=== PATIENT | female | born 1965 | race Caucasian/White ===

== ENCOUNTER 2017-10-10 22:22 | Emergency (ER) | payer MEDICAID, OTHER ==
[~2017-10-10] VITALS: Ht 172.7 cm; Wt 136.3 kg
[~2017-10-10 22:22] MED LIST: LEVO125T69 PO
[2017-10-11] MEDS ORDERED: IBUP-1986 PO (01:09)
[2017-10-11 01:39] VITALS: BP 157/76
== END 2017-10-11 01:41 | disposition home or self-care (01) ==
LOC: ER 22:23
DX: S93.401A Sprain of unspecified ligament of right ankle, initial encounter (principal); Z88.5 Allergy status to narcotic agent; Z88.0 Allergy status to penicillin; Z88.2 Allergy status to sulfonamides; Z88.1 Allergy status to other antibiotic agents; X58.XXXA Exposure to other specified factors, initial encounter; Y93.89 Activity, other specified; Y92.89 Other specified places as the place of occurrence of the external cause; Y99.8 Other external cause status
CPT/HCPCS: 29515; 73610; 99284

== ENCOUNTER 2018-04-06 14:58 | Emergency (ER) | payer OTHER ==
[~2018-04-06] VITALS: Ht 591.1 cm; Wt 140.9 kg
[~2018-04-06 14:58] MED LIST changes: +IBUP-1986 PO
[2018-04-06] MEDS ORDERED: ondansetron/PF 4mg/2ml inj IV ONE (15:10)
[2018-04-06] MEDS ORDERED: morphine 4 MG/ML inj SYRINge IV ONE (15:10)
[2018-04-06] MEDS ORDERED: normal saline 1000ML IV soln IVB ONE (15:10)
[2018-04-06 15:27] LABS: BASOPHILS % (AUTO) 0.5 % (0-1); EOSINOPHILS # (AUTO) 0.3 X10'3 (0-0.9); EOSINOPHILS % (AUTO) 4.7 % (0-6); HEMATOCRIT 37.7 % (35.0-45.0); HEMOGLOBIN 12.7 g/dl (12.0-16.0); LYMPHOCYTES # (AUTO) 1.7 X10'3 (1.1-4.8); LYMPHOCYTES % (AUTO) 22.6 % (21-51); MEAN CORPUSCULAR HEMOGLOBIN 30.6 PG (27.0-31.0); MEAN CORPUSCULAR HGB CONC 33.7 % (33.0-36.5); MEAN CORPUSCULAR VOLUME 90.7 FL (78-98); MEAN PLATELET VOLUME 7.9 FL (7.4-10.4); MONOCYTES # (AUTO) 0.4 X10'3 (0-0.9); MONOCYTES % (AUTO) 4.9 % (2-12); NEUTROPHILS % (AUTO) 67.3 % (42-75); PLATELET COUNT 280 X10'3 (140-440); RED BLOOD COUNT 4.16 X10'6 (4.20-5.60); RED CELL DISTRIBUTION WIDTH 13.2 % (11.5-14.5); WHITE BLOOD COUNT 7.4 X10'3 (4.5-11.0)
[2018-04-06 15:43] LABS: ALANINE AMINOTRANSFERASE 67 U/L (12-78); ALBUMIN 3.2 G/DL (3.4-5.0); ALKALINE PHOSPHATASE 130 IU/L (46-116); ANION GAP 7 (8-16); ASPARTATE AMINO TRANSFERASE 34 U/L (10-37); BILIRUBIN,TOTAL 0.3 MG/DL (0.1-1.0); BLOOD UREA NITROGEN 12 MG/DL (7-18); BUN/CREATININE RATIO 12.1 (6.6-38.0); CALCIUM 8.3 MG/DL (8.5-10.1); CHLORIDE 103 MMOL/L (99-107); CREATININE 0.99 MG/DL (0.40-0.90); GLUCOSE 97 MG/DL (70-104); POTASSIUM 3.4 MMOL/L (3.5-5.1); SODIUM 140 MMOL/L (135-145); TOTAL CARBON DIOXIDE 29.9 MMOL/L (24-32); TOTAL PROTEIN 6.4 G/DL (6.4-8.2); eGFR 59 ML/MIN
[2018-04-06 15:56] LABS: D-DIMER 0.21 MG/L FEU (0-0.50)
[2018-04-06] MEDS ORDERED: metoprolol succinate 25mg (24-HOUR) SR. Tablet PO STA (16:02)
[2018-04-06 17:51] VITALS: BP 117/60
[2018-04-06] MEDS ORDERED: NITR0.4T51 SL (17:51)
[2018-04-06] MEDS ORDERED: famotidine 20mg tablet PO ONE (18:00)
[2018-04-06] MEDS ORDERED: LIDOcaine Viscous 15ml cup PO ONE (18:00)
[2018-04-06] MEDS ORDERED: mag hydrox/Alum hydrox/simeth 30ml oral suspension PO ONE (18:00)
[2018-04-06] MEDS ORDERED: sucralfate 1 gm tablet PO ONE (18:00)
== END 2018-04-06 18:17 | disposition home or self-care (01) ==
LOC: ER 14:59
DX: I20.8 Other forms of angina pectoris (principal); M79.89 Other specified soft tissue disorders; I10 Essential (primary) hypertension; Z90.49 Acquired absence of other specified parts of digestive tract; Z88.1 Allergy status to other antibiotic agents; Z88.0 Allergy status to penicillin; Z88.2 Allergy status to sulfonamides; Z88.5 Allergy status to narcotic agent; Z79.899 Other long term (current) drug therapy
CPT/HCPCS: 36415; 71045; 80053; 83880; 84484; 85025; 85379; 93005; 93971; 96374; 96375; 99285; J2270; J2405; J7030

== ENCOUNTER 2018-11-15 14:07 | Observation (INO) | payer OTHER ==
[~2018-11-15] VITALS: Ht 172.7 cm; Wt 140.9 kg
[2018-11-15 14:45] LABS: BASOPHILS % (AUTO) 0.5 % (0-1); EOSINOPHILS % (AUTO) 0.5 % (0-6); HEMATOCRIT 42.7 % (35.0-45.0); LYMPHOCYTES # (AUTO) 1.5 X10'3 (1.1-4.8); LYMPHOCYTES % (AUTO) 19.4 % (21-51); MEAN CORPUSCULAR HEMOGLOBIN 29.9 PG (27.0-31.0); MEAN CORPUSCULAR HGB CONC 32.7 g/dL (33.0-36.5); MEAN CORPUSCULAR VOLUME 91.2 FL (78-98); MONOCYTES # (AUTO) 0.4 X10'3 (0-0.9); NEUTROPHILS # (AUTO) 5.8 X10'3 (1.8-7.7); NEUTROPHILS % (AUTO) 74.6 % (42-75); PLATELET COUNT 306 X10'3 (140-440); RED BLOOD COUNT 4.68 X10'6 (4.20-5.60); RED CELL DISTRIBUTION WIDTH 13.3 % (11.5-14.5); WHITE BLOOD COUNT 7.8 X10'3 (4.5-11.0)
[2018-11-15 14:56] LABS: ALANINE AMINOTRANSFERASE 74 U/L (12-78); ALBUMIN 3.8 G/DL (3.4-5.0); ALBUMIN/GLOBULIN RATIO 1.1 (1.1-1.5); ALKALINE PHOSPHATASE 142 IU/L (46-116); ANION GAP 9 (8-16); ASPARTATE AMINO TRANSFERASE 43 U/L (10-37); BILIRUBIN,TOTAL 0.4 MG/DL (0.1-1.0); BLOOD UREA NITROGEN 14 MG/DL (7-18); BUN/CREATININE RATIO 14.1 (6.6-38.0); CALCIUM 9.2 MG/DL (8.5-10.1); CHLORIDE 104 MMOL/L (99-107); CREATININE 0.99 MG/DL (0.40-0.90); GLUCOSE 102 MG/DL (70-104); POTASSIUM 3.4 MMOL/L (3.5-5.1); SODIUM 141 MMOL/L (135-145); TOTAL CARBON DIOXIDE 28.2 MMOL/L (24-32); TOTAL PROTEIN 7.4 G/DL (6.4-8.2); eGFR 58 ML/MIN
[2018-11-15 14:58] LABS: PARTIAL THROMBOPLASTIN TIME 26 SECONDS (22-32); PROTHROMBIN TIME 10.6 SECONDS (9.0-12.0)
[2018-11-15] MEDS ORDERED: aspirin 81mg tab.chew PO ONE (15:00)
[2018-11-15] MEDS ORDERED: nitroGLYCERIN 0.4mg SUBLingual tab SL PRN (15:00)
[2018-11-15] MEDS ORDERED: TRAZ-218 PO (15:17)
[2018-11-15] MEDS ORDERED: LOSA100T57 PO (15:17)
[2018-11-15] MEDS ORDERED: HYDR25TA4 PO (15:17)
[2018-11-15] MEDS ORDERED: LEVO125T8 PO (15:17)
[2018-11-15] MEDS ORDERED: mag hydrox/Alum hydrox/simeth 30ml oral suspension PO PRN (16:25)
[2018-11-15] MEDS ORDERED: magnesium hydroxide 30ml (MOM) UD suspension PO PRN (16:25)
[2018-11-15] MEDS ORDERED: ondansetron/PF 4mg/2ml inj IV PRN (16:25)
[2018-11-15] MEDS ORDERED: potassium Cl 40MEQ/NS 500ml 500 ML IV PRN ×2 (16:25)
[2018-11-15] MEDS ORDERED: potassium Cl 20 mEq SR tablet PO PRN ×2 (16:25)
[2018-11-15] MEDS ORDERED: traZODone 50mg tablet PO PRN (16:30)
--- NOTE | 2018-11-15 23:16 | NUR ---
Received pt report from Tomy in ED. Pt arrived on the unit at 2300 with VSS, on R/A, no signs of distress. changed into hospital socks, belongings placed in bedside drawers. Tele #10 placed on pt. Pt states that she currently is asymptomatic. Will continue to monitor.
[2018-11-16] VITALS (11 sets, daily range): BP systolic 108–147; BP diastolic 59–77
[2018-11-16 02:46] LABS: BASOPHILS % (AUTO) 0.1 % (0-1); EOSINOPHILS # (AUTO) 0.1 X10'3 (0-0.9); HEMATOCRIT 41.6 % (35.0-45.0); HEMOGLOBIN 13.8 g/dl (12.0-16.0); LYMPHOCYTES # (AUTO) 1.6 X10'3 (1.1-4.8); LYMPHOCYTES % (AUTO) 23.6 % (21-51); MEAN CORPUSCULAR HGB CONC 33.2 g/dL (33.0-36.5); MEAN CORPUSCULAR VOLUME 90.6 FL (78-98); MEAN PLATELET VOLUME 8.1 FL (7.4-10.4); MONOCYTES # (AUTO) 0.4 X10'3 (0-0.9); NEUTROPHILS # (AUTO) 4.7 X10'3 (1.8-7.7); NEUTROPHILS % (AUTO) 69.3 % (42-75); PLATELET COUNT 288 X10'3 (140-440); RED BLOOD COUNT 4.59 X10'6 (4.20-5.60); RED CELL DISTRIBUTION WIDTH 13.1 % (11.5-14.5); WHITE BLOOD COUNT 6.8 X10'3 (4.5-11.0)
[2018-11-16 02:56] LABS: ALBUMIN 3.6 G/DL (3.4-5.0); ANION GAP 7 (8-16); BLOOD UREA NITROGEN 13 MG/DL (7-18); BUN/CREATININE RATIO 12.9 (6.6-38.0); CALCIUM 9.4 MG/DL (8.5-10.1); CHLORIDE 104 MMOL/L (99-107); CREATININE 1.01 MG/DL (0.40-0.90); GLUCOSE 102 MG/DL (70-104); POTASSIUM 3.7 MMOL/L (3.5-5.1); SODIUM 141 MMOL/L (135-145); TOTAL CARBON DIOXIDE 30.1 MMOL/L (24-32); eGFR 57 ML/MIN
--- NOTE | 2018-11-16 06:37 | NUR ---
Problems reprioritized. Patient report given, questions answered & plan of care reviewed with Tashia PADILLA.
[2018-11-16] MEDS: K and/or MAG REPLACEMENT MC SCH (08:00)
[2018-11-16] MEDS: levoTHYROXINE 125mcg tablet PO SCH (09:23)
[2018-11-16] MEDS: losartan 50mg tablet PO SCH (09:24)
[2018-11-16] MEDS: HYDROchlorothiazide 25mg tablet PO SCH (09:25)
[2018-11-16] MEDS ORDERED: midazolam 2 mg/2 ml injection ONE (12:02)
[2018-11-16] MEDS ORDERED: iohexol 350 MG/ML 50ML vial IV ONE ×2 (12:03→13:38)
[2018-11-16] MEDS ORDERED: nitroGLYCERIN-Tridil 50MG/D5W 250 ML IV ONE (12:03)
[2018-11-16] MEDS ORDERED: heparin 1,000unit/ml 10ml vial 10 ML ONE (12:03)
[2018-11-16] MEDS ORDERED: LIDOcaine 1% (10mg/ml)w/preservative injection 20ml MDV ONE (12:03)
[2018-11-16] MEDS ORDERED: iohexol 350MG/ML 100ml bottle IV ONE (12:03)
[2018-11-16] MEDS ORDERED: fentaNYL/PF 50MCG/1 ML 2ML syringe ONE (12:03)
[2018-11-16] MEDS ORDERED: verapamil 2.5 mg/ml inj IV ONE (12:12)
[2018-11-16 14:36] LABS: ISTAT HGB ART 13.6 g/dl (12.0-16.0); ISTAT Hct ART 40 %PCV (35-48); ISTAT O2 SATURATION ARTERIAL 89 % (95-98); ISTAT SOURCE ART
[2018-11-16 14:36] LABS: ISTAT Hct MIX 39 %PCV (35-48); ISTAT O2 SATURATION MIX VENOUS 66 % (60-80); ISTAT SOURCE MIX
--- NOTE | 2018-11-16 18:14 | NUR ---
Pt. resting in bed comfortably with rise and fall of chest noted. Gave report to Erlinda PADILLA.
--- NOTE | 2018-11-16 18:53 | NUR ---
Patient in room [facility]. I have received report from Tashia PADILLA and had the opportunity to ask questions and assume patient care.
[2018-11-16] MEDS: acetaminophen 325mg tablet PO PRN (19:27)
[2018-11-17] VITALS: BP 124/64
[2018-11-17] MEDS: acetaminophen 325mg tablet PO PRN (00:41)
[2018-11-17 04:42] LABS: BASOPHILS % (AUTO) 0.2 % (0-1); EOSINOPHILS % (AUTO) 0.7 % (0-6); HEMATOCRIT 38.4 % (35.0-45.0); HEMOGLOBIN 12.5 g/dl (12.0-16.0); LYMPHOCYTES % (AUTO) 14.5 % (21-51); MEAN CORPUSCULAR HEMOGLOBIN 29.9 PG (27.0-31.0); MEAN CORPUSCULAR HGB CONC 32.6 g/dL (33.0-36.5); MEAN CORPUSCULAR VOLUME 91.6 FL (78-98); MONOCYTES # (AUTO) 0.4 X10'3 (0-0.9); MONOCYTES % (AUTO) 6.2 % (2-12); NEUTROPHILS # (AUTO) 5.6 X10'3 (1.8-7.7); NEUTROPHILS % (AUTO) 78.4 % (42-75); PLATELET COUNT 250 X10'3 (140-440); RED CELL DISTRIBUTION WIDTH 13.1 % (11.5-14.5); WHITE BLOOD COUNT 7.1 X10'3 (4.5-11.0)
[2018-11-17 04:45] LABS: ALBUMIN 3.3 G/DL (3.4-5.0); ANION GAP 6 (8-16); BLOOD UREA NITROGEN 13 MG/DL (7-18); BUN/CREATININE RATIO 14.6 (6.6-38.0); CALCIUM 8.8 MG/DL (8.5-10.1); CHLORIDE 104 MMOL/L (99-107); CREATININE 0.89 MG/DL (0.40-0.90); GLUCOSE 108 MG/DL (70-104); POTASSIUM 3.4 MMOL/L (3.5-5.1); SODIUM 139 MMOL/L (135-145); TOTAL CARBON DIOXIDE 28.9 MMOL/L (24-32); eGFR 66 ML/MIN
--- NOTE | 2018-11-17 06:28 | NUR ---
Problems reprioritized. Patient report given, questions answered & plan of care reviewed with Tashia PADILLA. Pt asleep on her left side with no signs of distress.
[2018-11-17] MEDS: losartan 50mg tablet PO SCH (07:24)
[2018-11-17] MEDS: levoTHYROXINE 125mcg tablet PO SCH (07:24)
[2018-11-17] MEDS: HYDROchlorothiazide 25mg tablet PO SCH (07:24)
[2018-11-17] MEDS: K and/or MAG REPLACEMENT MC SCH (07:28)
[2018-11-17 07:34] VITALS: BP 108/68
[2018-11-17] MEDS ORDERED: PANT-47 PO (11:12)
--- NOTE | 2018-11-17 14:56 | NUR ---
Barry MONROY for RUE sling size large. Pt. son here. States pt. is receiving care in downstairs ortho clinic, MD Low, for RU shoulder fx. Pt. should not walk with FWW at this time or put weight on that extremity. PT notified. Addendum: 11/17/18 at 1540 by Tashia Power RN iGNORE THIS NOTE. wRONG PT.
--- NOTE | 2018-11-17 15:40 | NUR ---
345a JENNIFER DARNELL PT DOES NOT WANT TO DISCHARGE. UNAWARE OF CHRONIC RAYMUNDO SEPULVEDA DISCUSSED IN DISCHARGE PAPERWORK REVIEW. MAY YOU SPEAK WITH THE PT PLEASE? ARTEM PADILLA [phone]
--- NOTE | 2018-11-17 15:52 | NUR ---
RETURNED PAGE. 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 ARTEM PADILLA [phone]
--- NOTE | 2018-11-17 18:10 | NUR ---
Pt. discharged today in a stable condition. Wanted to go down and visit her daughter who is a patient in the ER. Tel, DC'd cleaned and returned. IV DC'd, pressure bandage applied, no s/sx bleeding noted. Reviewed follow up care concerning radial heart cath sites. Pt has doctor's note to take off work r/t 10 pound weight lift limit for 5 days. She is aware. Extra bandages given to the pt. and s/sx bleeding reviewed w/pt. Pt. will make a follow noah. w/ MD Alvarez in one week. Discussed the rest of her discharge paperwork, and pt. knows to return if any s/sx occur again. Belongings taken with pt. downstairs, accompanied by hospital staff member to first floor.
== END 2018-11-17 16:40 | disposition home or self-care (01) ==
LOC: ER 14:08 → ED HOLD 16:22 → EDBEDREQ 22:34 → SUR 3N 23:32 → CMPBEDREQ 23:32
PROVIDERS: ADMIT Hospitalist; ATTEND Hospitalist
DX: R55 Syncope and collapse (principal); R07.89 Other chest pain; I10 Essential (primary) hypertension; E66.01 Morbid (severe) obesity due to excess calories; E87.6 Hypokalemia; R00.2 Palpitations; E03.9 Hypothyroidism, unspecified; Z87.19 Personal history of other diseases of the digestive system; Z90.49 Acquired absence of other specified parts of digestive tract; Z88.1 Allergy status to other antibiotic agents
CPT/HCPCS: 36415; 71045; 80048; 80053; 82803; 84484; 85014; 85025; 85610; 85730; 87070; 93005; 93460; 99284; A6257; A6449; G0378; J1644; J2001; J2250; J3010; Q9967; 99152; 99153; A4620; C1769; J3490

== ENCOUNTER 2018-12-12 10:37 | Emergency (ER) | payer OTHER ==
[~2018-12-12] VITALS: Ht 172.7 cm; Wt 139.1 kg
[~2018-12-12 10:37] MED LIST changes: +HYDR25TA4 PO; -IBUP-1986 PO; -LEVO125T69 PO; +LEVO125T8 PO; +LOSA100T57 PO; +PANT-47 PO; +TRAZ-218 PO
[2018-12-12 10:54] VITALS: BP 141/91
[2018-12-12] MEDS ORDERED: METH4TAB3 PO (11:21)
[2018-12-12] MEDS ORDERED: AMLO2.5T2 PO (11:21)
== END 2018-12-12 11:31 | disposition home or self-care (01) ==
LOC: ER 10:37
DX: R21 Rash and other nonspecific skin eruption (principal); L53.8 Other specified erythematous conditions; I10 Essential (primary) hypertension; Z90.49 Acquired absence of other specified parts of digestive tract; Z88.0 Allergy status to penicillin; Z88.2 Allergy status to sulfonamides; Z88.5 Allergy status to narcotic agent; Z79.899 Other long term (current) drug therapy
CPT/HCPCS: 99283

== ENCOUNTER 2019-03-18 23:01 | Emergency (ER) | payer OTHER ==
[~2019-03-18] VITALS: Ht 172.7 cm; Wt 140.0 kg
[~2019-03-18 23:01] MED LIST changes: +METH4TAB3 PO; -TRAZ-218 PO; +TRAZ-251 PO
[2019-03-18 23:03] VITALS: BP 145/78
[2019-03-18] MEDS ORDERED: CLIN150C8 PO (23:23)
[2019-03-18] MEDS ORDERED: clindamycin 150mg capsule PO ONE (23:25)
== END 2019-03-18 23:38 | disposition home or self-care (01) ==
LOC: ER 23:02
DX: L03.116 Cellulitis of left lower limb (principal); I10 Essential (primary) hypertension; Z90.49 Acquired absence of other specified parts of digestive tract; Z56.0 Unemployment, unspecified; Z79.2 Long term (current) use of antibiotics; Z88.2 Allergy status to sulfonamides; Z88.6 Allergy status to analgesic agent; Z79.899 Other long term (current) drug therapy
CPT/HCPCS: 99283

== ENCOUNTER 2019-03-20 21:12 | Emergency (ER) | payer OTHER ==
[~2019-03-20] VITALS: Ht 172.7 cm; Wt 140.4 kg
[~2019-03-20 21:12] MED LIST changes: +CLIN150C8 PO
[2019-03-20] MEDS ORDERED: DOXY100C43 PO (21:44)
[2019-03-20 22:02] VITALS: BP 133/82
== END 2019-03-20 22:03 | disposition home or self-care (01) ==
LOC: ER 21:13
DX: L03.116 Cellulitis of left lower limb (principal); I10 Essential (primary) hypertension; Z90.49 Acquired absence of other specified parts of digestive tract; Z56.0 Unemployment, unspecified; Z88.0 Allergy status to penicillin; Z88.2 Allergy status to sulfonamides; Z88.5 Allergy status to narcotic agent; Z88.8 Allergy status to other drugs, medicaments and biological substances; Z79.2 Long term (current) use of antibiotics; Z79.899 Other long term (current) drug therapy
CPT/HCPCS: 99283

== ENCOUNTER 2019-07-15 13:53 | Emergency (ER) | payer OTHER ==
[~2019-07-15] VITALS: Ht 172.7 cm; Wt 140.9 kg
[2019-07-15 14:14] VITALS: BP 178/92
== END 2019-07-15 16:05 | disposition home or self-care (01) ==
LOC: ER 13:54
DX: S09.90XA Unspecified injury of head, initial encounter (principal); I10 Essential (primary) hypertension; Z90.49 Acquired absence of other specified parts of digestive tract; Z56.0 Unemployment, unspecified; Z88.1 Allergy status to other antibiotic agents; Z88.2 Allergy status to sulfonamides; Z88.0 Allergy status to penicillin; Z88.6 Allergy status to analgesic agent; Z88.8 Allergy status to other drugs, medicaments and biological substances; Z79.2 Long term (current) use of antibiotics; Z79.899 Other long term (current) drug therapy; W22.8XXA Striking against or struck by other objects, initial encounter; Y93.89 Activity, other specified; Y92.89 Other specified places as the place of occurrence of the external cause; Y99.8 Other external cause status
CPT/HCPCS: 70450; 72125; 99284

== ENCOUNTER 2019-07-18 18:41 | Emergency (ER) | payer OTHER ==
[~2019-07-18] VITALS: Ht 172.7 cm; Wt 140.9 kg
[2019-07-18 18:48] VITALS: BP 154/87
== END 2019-07-18 20:40 | disposition home or self-care (01) ==
LOC: ER 18:42
DX: M25.562 Pain in left knee (principal); I10 Essential (primary) hypertension; Z88.8 Allergy status to other drugs, medicaments and biological substances; Z88.0 Allergy status to penicillin; Z88.6 Allergy status to analgesic agent; Z79.2 Long term (current) use of antibiotics; Z79.899 Other long term (current) drug therapy; Z88.2 Allergy status to sulfonamides; Z90.49 Acquired absence of other specified parts of digestive tract; Z56.0 Unemployment, unspecified; X58.XXXA Exposure to other specified factors, initial encounter; Y93.01 Activity, walking, marching and hiking; Y92.89 Other specified places as the place of occurrence of the external cause; Y99.8 Other external cause status
CPT/HCPCS: 29505; 73564; 99283

== ENCOUNTER 2019-07-28 09:40 | Outpatient (CLI) | payer OTHER | END 2019-07-28 09:49 | disposition home or self-care (01) | LOC: ORTHO 09:40 | PROVIDERS: ATTEND Nurse Practitioner | DX: S86.812A Strain of other muscle(s) and tendon(s) at lower leg level, left leg, initial encounter (principal); E66.9 Obesity, unspecified; I10 Essential (primary) hypertension; Z88.8 Allergy status to other drugs, medicaments and biological substances; Z88.0 Allergy status to penicillin; Z88.6 Allergy status to analgesic agent; Z79.2 Long term (current) use of antibiotics; Z79.899 Other long term (current) drug therapy; X58.XXXD Exposure to other specified factors, subsequent encounter | CPT/HCPCS: G0463 ==

== ENCOUNTER 2023-09-28 17:13 | Emergency (ER) | payer OTHER ==
[~2023-09-28] VITALS: Ht 172.7 cm; Wt 97.7 kg
[~2023-09-28 17:13] MED LIST changes: +CLIN-214 PO; -CLIN150C8 PO; -LOSA100T57 PO; +LOSA100T58 PO
[2023-09-28 17:16] VITALS: BP 189/70; PULSE 69; RESP 18; TEMP 97.1; O2SAT 98
[2023-09-28] MEDS: predniSONE 20 mg tablet PO ONE (19:00)
[2023-09-28] MEDS: LORazepam 2 mg/ml vial IM ONE (19:00)
[2023-09-28] MEDS ORDERED: CYCL-1 PO (20:00)
[2023-09-28] MEDS ORDERED: PRED20TA PO (20:00)
== END 2023-09-28 20:26 | disposition home or self-care (01) ==
LOC: ER 17:13
DX: S39.012A Strain of muscle, fascia and tendon of lower back, initial encounter (principal); I10 Essential (primary) hypertension; E11.9 Type 2 diabetes mellitus without complications; Z88.8 Allergy status to other drugs, medicaments and biological substances; Z88.1 Allergy status to other antibiotic agents; Z88.6 Allergy status to analgesic agent; Z88.0 Allergy status to penicillin; Z88.2 Allergy status to sulfonamides; Z79.2 Long term (current) use of antibiotics; Z79.899 Other long term (current) drug therapy; Z90.49 Acquired absence of other specified parts of digestive tract; X58.XXXA Exposure to other specified factors, initial encounter; Y93.89 Activity, other specified; Y92.89 Other specified places as the place of occurrence of the external cause; Y99.8 Other external cause status
CPT/HCPCS: 72131; 96372; 99285; J2060; J7512

== ENCOUNTER 2025-03-30 15:31 | Emergency (ER) | payer OTHER ==
[~2025-03-30] VITALS: Ht 172.7 cm; Wt 120.4 kg
[~2025-03-30 15:31] MED LIST changes: +CYCL-1 PO
[2025-03-30 15:33] VITALS: BP 140/87; PULSE 74; RESP 18; TEMP 96.9; O2SAT 97
--- NOTE | 2025-03-30 15:46 | Physician Documentation ---
History of Present Illness ~ Chief Complaint: Bite-animal Stated Complaint: FACIAL PAIN Time Seen by MD: 15:39 Primary Medical Doctor: dr. curtis HPI He will female presents to the ED with a complaint of a cat bite on her right brow. Yesterday and she has developed increased pain and swelling denies any fevers or nausea vomit. Denies any history of diabetes Day of Onset: Mar 30, 2025 Medication Reconciliation Allergies: Coded Allergies: hydrochlorothiazide (Verified Allergy, Severe, FACIAL SWELLING, 03/30/25) losartan (Verified Allergy, Severe, FACIAL SWELLING, 03/30/25) Cephalexin Monohydrate (Unverified Allergy, Unknown, hives, 03/30/25) NSAIDS (Non-Steroidal Anti-Inflamma (Verified Allergy, Unknown, aspirin ok, 03/30/25) Penicillins (Unverified Allergy, Unknown, 03/30/25) Sulfa (Sulfonamide Antibiotics) (Unverified Allergy, Unknown, 03/30/25) hydromorphone (Verified Allergy, Unknown, 03/30/25) Scheduled Clindamycin HCl (Clindamycin HCl CAPSULE), 1 CAP PO QID Cyclobenzaprine* (Cyclobenzaprine*), 1 TAB PO Q8H Doxycycline Monohydrate (Doxycycline Monohydrate), 1 CAP PO Q12H Hydrochlorothiazide (Hydrochlorothiazide), 1 TAB PO DAILY, (Reported) Levothyroxine Sodium (Levothyroxine Sodium), 1 TAB PO DAILY@0700, (Reported) Losartan Potassium (Losartan Potassium), 1 TAB PO DAILY, (Reported) Methylprednisolone (Medrol), 1 DOSPAK PO UD Pantoprazole Sodium (PROTONIX tablet), 40 MG PO DAILY Scheduled PRN Trazodone HCl (Trazodone HCl), 1 TAB PO HS PRN for sleep, (Reported) Past Medical History Past Medical History: Hypertension, Cholelithiasis, Diabetes Past Surgical History: cholecystectomy Alcohol Use: Rarely Drug Use: none Lives with: Spouse Lives In: Home Occupation: unemployed Review of Systems All Other Systems at this time: Reviewed and Negative ROS As stated above in the HPI, otherwise all systems are reviewed and negative. Physical Exam Vital Signs: Temperature: 96.9, Source: Temporal, Heart Rate: 74, Respiratory Rate: 18, BP: 140/87, Pulse Oximetry: 97, Weight: 120.400 Physical Exam General: Alert, no apparent distress. HEENT: PERRL, EOMI, no injection, moist mucous membranes. developing echymosis small puncture Neck: Full range of motion. Respiratory: Lungs clear, no respiratory distress. Progress Results/Orders Results/Orders Completed Orders - DARIEN COLEY NP Doxycycline 100mg Capsule (Vibramycin 10 (03/30/25 15:48) Medications Received in ER Medications (Trade) Dose Ordered Sig/Arnie Route PRN Reason Start Time Stop Time Status Last Admin Dose Admin (VIBRAMYCIN 100mg capsule) 100 mg ONCE STAT PO 03/30/25 15:48 03/30/25 15:49 DC 03/30/25 16:05 100 MG Vital Signs 03/30/25 15:33 Temp 96.9 Pulse 74 Resp 18 B/P (MAP) 140/87 Pulse Ox 97 Departure Disposition: 01 HOME / SELF CARE / HOMELESS Impression: Primary Impression: Dog bite Condition: Stable Discharge Instructions: Animal Bite, Adult Referrals: NO PRIMARY CARE PROVIDER (PCP) Prescriptions Doxycycline Monohydrate (Doxycycline Monohydrate) 100 Mg Capsule 1 CAP PO Q12H for 10 Days, #20 CAP Prov: DARIEN COLEY JUDICIAL REGISTRAR 03/30/25 Signature Scribe Signature: f Attestation: Scribed for Darien Coley Marketing Finance Specialist by Darien Coley - [place] . 03/30/25 15:51 DARIEN COLEY NP Mar 30, 2025 15:46
[2025-03-30] MEDS ORDERED: DOXY-460 PO (15:49)
[2025-03-30] MEDS: DOXYCYCLINE 100MG CAPSULE PO STA (16:05)
== END 2025-03-30 16:02 | disposition home or self-care (01) ==
LOC: ER 15:31
DX: S01.151A Open bite of right eyelid and periocular area, initial encounter (principal); I10 Essential (primary) hypertension; E11.9 Type 2 diabetes mellitus without complications; Z90.49 Acquired absence of other specified parts of digestive tract; Z88.0 Allergy status to penicillin; Z88.5 Allergy status to narcotic agent; Z88.2 Allergy status to sulfonamides; Z88.6 Allergy status to analgesic agent; Z79.899 Other long term (current) drug therapy; Z56.0 Unemployment, unspecified; W55.01XA Bitten by cat, initial encounter; Y93.89 Activity, other specified; Y92.89 Other specified places as the place of occurrence of the external cause; Y99.8 Other external cause status
CPT/HCPCS: 99283